=== PATIENT | female | born 1990 | race African-American/Black ===

== ENCOUNTER 2020-12-18 13:22 | Outpatient (CLI) | payer MEDICAID, SELFPAY ==
[2020-12-18 14:04] LABS: Basophils Percent Auto 0.4 % (0.2-1.2); Eosinophils Absolute Auto 0.1 K/mm3 (0-0.3); Eosinophils Percent Auto 1.4 % (0-4.4); Hematocrit 38.8 % (37.0-47.0); Hemoglobin 12.3 g/dL (12.0-15.0); Immature Granulocyte Absolute 0.02 K/mm3 (0.00-0.031); Immature Granulocyte Percent A 0.3 % (0-0.5); Lymphocytes Absolute Auto 2.47 K/mm3 (0.9-3.2); Lymphocytes Percent Auto 33.6 % (18.3-44.2); Mean Corpuscular HGB Conc 31.7 g/dl (32-36); Mean Corpuscular Hemoglobin 27.3 pg (26-34); Mean Corpuscular Volume 86.2 fl (80-100); Mean Platelet Volume 9.9 fl (7.4-10.4); Monocytes Absolute Auto 0.5 K/mm3 (0.1-0.6); Monocytes Percent Auto 6.3 % (2.6-8.5); Neutrophils Absolute Auto 4.3 K/mm3 (1.3-6.7); Platelet Count Result 237 k/mm3 (150-375); Red Cell Distribution Width 14.7 % (11.5-14.5); White Blood Count 7.4 K/mm3 (4.5-10.0)
[2020-12-18 14:59] LABS: HIV 1/2 Ab P24 Ag Result Negative (Negative)
[2020-12-18 15:33] LABS: Add Urine Microscopic? NO; Appearance Urine Clear (Clear); Bilirubin Urine Negative (Negative); Blood Urine Negative (Negative); Color Urine Yellow (Yellow); Glucose Urine UA Negative (Negative); Ketones Urine Negative (Negative); Leukocyte Esterase Ur Negative LEU/UL (NEGATIVE); Nitrate Urine Negative (Negative); Protein Urine Negative (Negative); Urobilinogen Urine Negative mg/dL (<2.0)
[2020-12-18 16:00] LABS: Vitamin D 25 Hydroxy 22.4 ng/mL
[2020-12-18 23:05] LABS: Hepatitis B Surface Antigen Negative (Negative)
[2020-12-18 23:06] LABS: Hepatitis C Virus Antibody Negative (Negative); Rubella IgG Antibody > 120.0 IU/ML
[2020-12-22 08:26] LABS: Rapid Plasma Reagin Non-Reactive (NonReactive)
[2020-12-22 15:47] LABS: Hematocrit 38.3 % (35.0-45.0); Hemoglobin 12.3 g/dL (11.7-15.5); MCH 27.9 pg (27.0-33.0); MCV 86.8 fL (80.0-100.0); RDW 15.8 % (11.0-15.0); Red Blood Cell Count 4.41 Mill/uL (3.80-5.10)
== END 2020-12-18 13:23 | disposition home or self-care (01) ==
PROVIDERS: Visit Provider Obstetrics & Gynecology
DX: Z34.90 Encounter for supervision of normal pregnancy, unspecified, unspecified trimester (principal); Z3A.00 Weeks of gestation of pregnancy not specified
CPT/HCPCS: 36415; 81003; 82306; 83021; 84443; 85025; 86592; 86703; 86762; 86787; 86803; 86850; 86900; 86901; 87086; 87088; 87340; G0432

== ENCOUNTER 2021-01-01 13:59 | Outpatient (CLI) | payer MEDICAID, SELFPAY ==
--- NOTE | ~2021-01-01 | US_ITS ---
EXAMINATION: US OB <= 14 weeks fetus DATE: 01/01/2021 14:52 INDICATION: Gestational dating. TECHNIQUE: Real-time transabdominal obstetric ultrasound. FINDINGS: No prior studies for comparison. There is a single living fetus in breech presentation. The placenta is posterior without placenta pr evia. cardiac activity and movement is noted with a heart rate of 166 beats per minute. T he amniotic fluid volume is subjectively normal. The following biometric data were obtained: BPD: 31mm corresponds to gestational age 15 weeks 5 days. Head circumference: 115mm corresponds to gestational age 15 weeks 4 days. Abdominal circumference: 90mm corresponds to gestational age 15 weeks 1 days. Femur length: 17mm corresponds to gestational age 15 weeks 1 days. Estimated weight: 118grams +/- 18grams.] IMPRESSION: 1. Single living intrauterine in breech presentation with an estimated gestational age of 15 weeks 3 days by current ultrasound. EDC by current ultrasound 06/22/2021. 2. Normal placenta. Reviewed, dictated and finalized at location A. IMPRESSION: 1. Single living intrauterine in breech presentation with an estimat ed gestational age of 15 weeks 3 days by current ultrasound. EDC by current ult rasound 06/22/2021. 2. Normal placenta.
== END 2021-01-01 14:00 | disposition home or self-care (01) ==
LOC: ANHIMG 14:01
PROVIDERS: Visit Provider Obstetrics & Gynecology
DX: Z34.92 Encounter for supervision of normal pregnancy, unspecified, second trimester (principal); Z3A.15 15 weeks gestation of pregnancy
CPT/HCPCS: 76801

== ENCOUNTER 2021-01-29 13:46 | Outpatient (CLI) | payer OTHER, SELFPAY ==
--- NOTE | ~2021-01-29 | US_ITS ---
EXAMINATION: US OB /maternal detail DATE: 01/29/2021 14:52 INDICATION: anatomic survey. TECHNIQUE: Real-time ultrasound of the pelvis was performed. COMPARISON: Ultrasound 01/01/2021 FINDINGS: There is a single living fetus in vertex presentation. The placenta is posterior, 5.4 cm from the ce rvix. heart rate is 150 beats per minute (bpm). The amniotic fluid index is 17.8 cm, which is n ormal. The following biometric data were obtained: Biparietal diameter (BPD): 4.3 cm; head circumference (HC): 16.2 cm; abdominal circumference (AC): 13 .5 cm; femur length (FL): 3.0 cm. These measurements are concordant. Estimated weight is 272 g +/- 41 g, which correlates with 26th percentile when 06/22/21 is used as estimated date of delivery. As single measurements, these parameters are each equal to the following estimated gestational ages: BPD: 19 weeks 0 days. HC: 19 weeks 0 days. AC: 19 weeks 0 days. FL: 19 weeks 2 days. estimated gestational age based solely on measurements from this exam is 19 weeks 1 days +/- 1 weeks 2 days. The cerebral ventricles, cerebellum, cisterna magna, nuchal fold, and visualized portions of the spin e are normal. The heart is normal. The diaphragm, stomach, kidneys, and bladder are normal. There are two umbilical arteries to yield a 3-vessel cord. The cord insertion is normal. IMPRESSION: 1. Single living fetus in vertex presentation. 2. Estimated weight is 272 g +/- 41 g, which correlates with 26th percentile when 06/22/21 is used as estimated date of delivery. This date was set by ultrasound on 01/11/2021. 3. Normal anatomic survey. Reviewed, dictated and finalized at location A. IMPRESSION: 1. Single living fetus in vertex presentation. 2. Estimated weight is 272 g +/- 41 g, which correlates with 26th percen tile when 12/28/21 is used as estimated date of delivery. This date was set by ultrasound on 01/11/2021. 3. Normal anatomic survey.
== END 2021-01-29 13:47 | disposition home or self-care (01) ==
LOC: ANHIMG 13:49
PROVIDERS: Visit Provider Obstetrics & Gynecology
DX: Z36.89 Encounter for other specified antenatal screening (principal)
CPT/HCPCS: 76805

== ENCOUNTER 2021-03-12 13:43 | Outpatient (CLI) | payer OTHER, SELFPAY ==
[2021-03-12 15:22] LABS: Basophils Percent Auto 0.3 % (0.2-1.2); Eosinophils Absolute Auto 0.1 K/mm3 (0-0.3); Eosinophils Percent Auto 1.1 % (0-4.4); Hematocrit 34.3 % (37.0-47.0); Hemoglobin 10.9 g/dL (12.0-15.0); Immature Granulocyte Absolute 0.04 K/mm3 (0.00-0.031); Immature Granulocyte Percent A 0.5 % (0-0.5); Mean Corpuscular HGB Conc 31.8 g/dl (32-36); Mean Corpuscular Hemoglobin 28.3 pg (26-34); Mean Corpuscular Volume 89.1 fl (80-100); Mean Platelet Volume 10.2 fl (7.4-10.4); Monocytes Absolute Auto 0.6 K/mm3 (0.1-0.6); Monocytes Percent Auto 6.6 % (2.6-8.5); Neutrophils Absolute Auto 5.2 K/mm3 (1.3-6.7); Neutrophils Percent Auto 59.5 % (45.5-73.1); Platelet Count Result 199 k/mm3 (150-375); Red Blood Count 3.85 M/mm3 (4.2-5.4); Red Cell Distribution Width 14.6 % (11.5-14.5); White Blood Count 8.8 K/mm3 (4.5-10.0)
[2021-03-12 15:34] LABS: Glucose 1 Hour PP 50gm Dose 111 mg/dL
[2021-03-12 16:14] LABS: HIV 1/2 Ab P24 Ag Result Negative (Negative)
== END 2021-03-12 13:44 | disposition home or self-care (01) ==
PROVIDERS: Visit Provider Obstetrics & Gynecology
DX: Z34.90 Encounter for supervision of normal pregnancy, unspecified, unspecified trimester (principal); Z3A.00 Weeks of gestation of pregnancy not specified
CPT/HCPCS: 36415; 82947; 85025; 86703; G0432

== ENCOUNTER 2021-05-31 13:11 | Outpatient (CLI) | payer OTHER, SELFPAY ==
--- NOTE | ~2021-05-31 | US_ITS ---
EXAMINATION: US OB follow up DATE: 05/31/2021 13:46 INDICATION: Assess growth and amniotic fluid index during third trimester of TECHNIQUE: Real-time ultrasound of the pelvis was performed. The interpreting radiologist was not pre sent for the study. COMPARISON: 01/01/2021 FINDINGS: There is a single living fetus in vertex presentation. The placenta is fundal. heart rate is 1 46 beats per minute (bpm). The amniotic fluid index is 14.0 cm, which is normal (5th%-95%: 7.7-24.9 cm at 36 weeks estimated gestational age). The following biometric data were obtained: BPD: 9.6 cm -> 39 weeks 1 days Head circumference: 34.5 cm -> 39 weeks 6 days Abdominal circumference: 32.8 cm -> 36 weeks 5 days Femur length: 7.5 cm -> 38 weeks 2 days These measurements are concordant. Head circumference to abdominal circumference ratio: 1.05 (normal range 0.88-1.06). Estimated weight: 3287 g (+/-) 493 g or 7 lbs 4 oz or (+/-) 1lb 1 oz. IMPRESSION: 1. Single living fetus in vertex presentation with heart rate of 146 bpm. 2. Normal amniotic fluid index of 14.0 cm. 3. Estimated weight is 78th percentile by Hadlock criteria when 06/22/2021 is used as the estim ated date of delivery (ODETTE). Please correlate with clinical information or earlier ultrasounds for mo st accurate ODETTE. Reviewed, dictated and finalized at location B. TION CLASSIFIER IMPRESSION: 1. Single living fetus in vertex presentation with heart rate of 146 bpm. 2. Normal amniotic fluid index of 14.0 cm. 3. Estimated weight is 78th percentile by Hadlock criteria when 1 is used as the estimated date of delivery (ODETTE). Please correlate with clinic al information or earlier ultrasounds for most accurate ODETTE.
== END 2021-05-31 13:12 | disposition home or self-care (01) ==
PROVIDERS: PCP Obstetrics & Gynecology; Visit Provider Obstetrics & Gynecology
DX: O26.841 Uterine size-date discrepancy, first trimester (principal); Z3A.00 Weeks of gestation of pregnancy not specified
CPT/HCPCS: 76816

== ENCOUNTER 2021-06-24 12:49 | Outpatient (RCR) | payer OTHER, SELFPAY ==
--- NOTE | ~2021-06-24 | US_ITS ---
EXAMINATION: US OB limited DATE: 06/24/2021 14:01 INDICATION: Assess amniotic fluid index in term . TECHNIQUE: Real-time ultrasound of the pelvis was performed. The interpreting radiologist was not pre sent for the study. COMPARISON: None. FINDINGS: There is a single living fetus in vertex presentation. The placenta is fundal. heart rate is 1 43 beats per minute (bpm). The amniotic fluid index is 8.0 cm, which is normal (5th%-95%: 7.1-21.4 cm at 40 weeks estimated gestational age). IMPRESSION: 1. Single living fetus in vertex presentation with heart rate of 143 bpm. 2. Normal amniotic fluid index of 8.0 cm. Reviewed, dictated and finalized at location A. [employer]
[2021-06-24 14:15] VITALS: BP 118/65; PULSE 82
== END 2021-09-22 23:59 | disposition home or self-care (01) ==
LOC: ANHOBOP 12:49
PROVIDERS: PCP Obstetrics & Gynecology; Visit Provider Obstetrics & Gynecology
DX: O48.0 Post-term pregnancy (principal); Z3A.40 40 weeks gestation of pregnancy
CPT/HCPCS: 59025; 76815

== ENCOUNTER 2021-06-28 15:06 | Inpatient (IN) | payer OTHER, SELFPAY ==
--- NOTE | 2021-06-02 11:27 | PC.NURSE ---
PATIENT IS A PREVIOUS C/S DUE TO PREVIA--PLANS TO --CONSENT SIGNED
[2021-06-28] VITALS (20 sets, daily range): BP systolic 87–122; BP diastolic 63–79; PULSE 58–80; RESP 18; TEMP 36.6–36.7
--- NOTE | 2021-06-28 17:30 | LDADM ---
This patient, Matt Ott, was admitted to Labor/Delivery/Recovery 102 on 06/28/21 at 15:06. Plans for labor, pain management and were discussed with patient. Patient/family oriented to hospital policies and general routines including ID bracelet, bed and alarms, visiting hours, pain management, procedures, bathroom and other care routines, personal items, smoking policy, room service/diet and guest tray routines, infant security routines, and visiting hours. Patient/Family are encouraged to report perceived risks to care and to ask questions if they do not understand what they are told or what they should do. See OBIX for further documentation.
[2021-06-28 17:36] LABS: Basophils Percent Auto 0.4 % (0.2-1.2); Eosinophils Absolute Auto 0.1 K/mm3 (0-0.3); Eosinophils Percent Auto 0.8 % (0-4.4); Hematocrit 36.7 % (37.0-47.0); Hemoglobin 11.6 g/dL (12.0-15.0); Immature Granulocyte Absolute 0.06 K/mm3 (0.00-0.031); Immature Granulocyte Percent A 0.7 % (0-0.5); Lymphocytes Absolute Auto 2.88 K/mm3 (0.9-3.2); Lymphocytes Percent Auto 33.8 % (18.3-44.2); Mean Corpuscular HGB Conc 31.6 g/dl (32-36); Mean Corpuscular Hemoglobin 27.4 pg (26-34); Mean Corpuscular Volume 86.6 fl (80-100); Mean Platelet Volume 11.7 fl (7.4-10.4); Monocytes Absolute Auto 0.9 K/mm3 (0.1-0.6); Neutrophils Absolute Auto 4.6 K/mm3 (1.3-6.7); Neutrophils Percent Auto 54.3 % (45.5-73.1); Platelet Count Result 220 k/mm3 (150-375); Red Blood Count 4.24 M/mm3 (4.2-5.4); Red Cell Distribution Width 15.2 % (11.5-14.5); White Blood Count 8.5 K/mm3 (4.5-10.0)
[2021-06-28] MEDS: OXYTOCIN 30 UNITS/NS 500 ML 30 UNITS/500 ML BAG IV CONT (17:47)
[2021-06-28] MEDS: LACTATED RINGERS 1,000 ML 125 ML IV CONT (17:48)
[2021-06-28 18:03] LABS: Alanine Aminotransferase 14 U/L (4-35); Albumin Level 4.3 g/dL (3.5-5.1); Alkaline Phosphatase 304 U/L (38-126); Anion Gap 8 mmol/L (8-16); Aspartate Amino Transferase 27 U/L (14-36); Bilirubin,Total 0.5 mg/dL (0.2-1.3); Blood Urea Nitrogen 6 mg/dL (7-17); Calcium 9.5 mg/dL (8.4-10.2); Carbon Dioxide 22 mmol/L (22-30); Chloride 105 mmol/L (98-107); Estimated Glomerular Filt Rate > 60; Glucose 75 mg/dL (65-110); Potassium 4.2 mmol/L (3.4-5.0); Sodium 135 mmol/L (137-145)
[2021-06-28 20:23] LABS: HIV 1/2 Ab P24 Ag Result Negative (Negative)
[2021-06-29] VITALS (178 sets, daily range): BP systolic 90–157; BP diastolic 50–119; PULSE 56–179; RESP 14–18; TEMP 36.4–38.4; O2SAT 86–100
[2021-06-29] MEDS: LACTATED RINGERS 1,000 ML 125 ML IV CONT ×2 (03:33→05:33)
--- NOTE | 2021-06-29 03:35 | WPDANESEPP ---
Anes - Eval Pre Procedure Procedure: Labor epidural Date/Time: 06/29/21 03:35 Surgeon: Jerry Preop Diagnosis: Abd pain wit contractions Pre Op Diagnosis: Induction of Labor Patient Data Age: 31 Gender: F Height: Weight: Last Vital Signs Temp 97.8 F 06/29/21 03:12 Pulse 67 06/29/21 03:30 Resp 18 06/28/21 18:59 BP 106/66 06/29/21 03:30 Allergies Allergy/AdvReac Type Severity Reaction Status Date / Time No Known Allergies Allergy Verified 06/28/21 12:30 Home Medications Medication Instructions Recorded Confirmed Type docosahexaenoic acid 200 mg capsule 200 mg PO DAILY 12/18/20 06/28/21 History pyridoxine (vitamin B6) 50 mg 50 mg PO DAILY 01/15/21 06/28/21 History tablet Laboratory Tests 06/28/21 06/28/21 06/28/21 17:25 17:25 17:25 WBC 8.5 K/mm3 K/mm3 (4.5-10.0) RBC 4.24 M/mm3 M/mm3 (4.2-5.4) Hgb 11.6 g/dL L g/dL (12.0-15.0) Hct 36.7 % L % (37.0-47.0) MCV 86.6 fl fl (80-100) MCH 27.4 pg pg (26-34) MCHC 31.6 g/dl L g/dl (32-36) RDW 15.2 % H % (11.5-14.5) Plt Count 220 k/mm3 k/mm3 (150-375) MPV 11.7 fl H fl (7.4-10.4) Immature Gran % (Auto) 0.7 % H % (0-0.5) Neut % (Auto) 54.3 % % (45.5-73.1) Lymph % (Auto) 33.8 % % (18.3-44.2) [place] % (Auto) 10.0 % H % (2.6-8.5) Eos % (Auto) 0.8 % % (0-4.4) Baso % (Auto) 0.4 % % (0.2-1.2) Lymph # (Auto) 2.88 K/mm3 K/mm3 (0.9-3.2) [place] # (Auto) 0.9 K/mm3 H K/mm3 (0.1-0.6) Eos # (Auto) 0.1 K/mm3 K/mm3 (0-0.3) Baso # (Auto) 0.0 K/mm3 K/mm3 (0.0-0.1) Abs Immat Gran (auto) 0.06 K/mm3 H K/mm3 (0.00-0.031) Absolute Neuts (auto) 4.6 K/mm3 K/mm3 (1.3-6.7) Absolute Nucleated RBC 0.0 K/mm3 K/mm3 (0.0-0.012) Nucleated RBC % 0.0 % % (0.0-0.2) Sodium 135 mmol/L L mmol/L (137-145) Potassium 4.2 mmol/L mmol/L (3.4-5.0) Chloride 105 mmol/L mmol/L (98-107) Carbon Dioxide 22 mmol/L mmol/L (22-30) Anion Gap 8 mmol/L mmol/L (8-16) BUN 6 mg/dL L mg/dL (7-17) Creatinine 0.50 mg/dL L mg/dL (0.7-1.0) Estim Creat Clear Calc Not Reportable Estimated GFR > 60 (59 - ) Glucose 75 mg/dL mg/dL (65-110) Uric Acid 3.0 mg/dL mg/dL (2.5-7.5) Calcium 9.5 mg/dL mg/dL (8.4-10.2) Total Bilirubin 0.5 mg/dL mg/dL (0.2-1.3) AST 27 U/L U/L (14-36) ALT 14 U/L U/L (4-35) Alkaline Phosphatase 304 U/L H U/L (38-126) Total Protein 8.0 g/dL g/dL (6.3-8.2) Albumin 4.3 g/dL g/dL (3.5-5.1) RPR Pending HIV 1&2 Ab/P24 Ag 4thGn Blood Type Antibody Screen 06/28/21 06/28/21 17:25 17:26 WBC RBC Hgb Hct MCV MCH MCHC RDW Plt Count MPV Immature Gran % (Auto) Neut % (Auto) Lymph % (Auto) [place] % (Auto) Eos % (Auto) Baso % (Auto) Lymph # (Auto) [place] # (Auto) Eos # (Auto) Baso # (Auto) Abs Immat Gran (auto) Absolute Neuts (auto) Absolute Nucleated RBC Nucleated RBC % Sodium Potassium Chloride Carbon Dioxide Anion Gap BUN Creatinine Estim Creat Clear Calc Estimated GFR Glucose Uric Acid Calcium Total Bilirubin AST ALT Alkaline Phosphatase Total Protein Albumin RPR HIV 1&2 Ab/P24 Ag 4thGn Negative (Negative) Blood Type O Positive Antibody Screen
--- NOTE | 2021-06-29 07:57 | PM.IMHP ---
H&P: HPI History of Present Illness Date/Time: 06/29/21 07:57 at 40+5 with h/o prior C section due to placenta previa. She came to office yesterday and had mildly elevated BP so she was advised to be induced. She is comfortable with epidural and had no complaints this morning Chief Complaint: induction of labor, previous Review of Systems Review of Systems: All systems reviewed & are unremarkable except as noted in HPI and below PMFSH Past Medical History Medical History No active medical problems Obesity Surgical History Surgical History History of x1 Previous section Family History Family History Father Liver cancer Diabetes mellitus Hypertension Social History Social History Smoking status: Never smoker Second hand tobacco smoke exposure: No Alcohol intake: never Substance use: never Spiritual care concerns: No Meds Home Medications and Allergies Home Medications Medication Instructions Recorded Confirmed Type docosahexaenoic acid 200 mg capsule 200 mg PO DAILY 12/18/20 06/28/21 History pyridoxine (vitamin B6) 50 mg 50 mg PO DAILY 01/15/21 06/28/21 History tablet Allergies Allergy/AdvReac Type Severity Reaction Status Date / Time No Known Allergies Allergy Verified 06/28/21 12:30 Vital Signs Vital Signs - 24 hr 06/28/21 15:51 06/28/21 16:00 06/28/21 16:16 Temperature Pulse Rate 76 76 68 Respiratory Rate Blood Pressure 115/67 109/63 110/67 Pulse Oximetry 06/28/21 16:30 06/28/21 16:45 06/28/21 17:00 Temperature Pulse Rate 80 71 68 Respiratory Rate Blood Pressure 109/69 113/63 114/66 Pulse Oximetry 06/28/21 18:53 06/28/21 18:59 06/28/21 19:00 Temperature 36.7 C Pulse Rate 66 79 Respiratory Rate 18 Blood Pressure 113/72 107/79 Pulse Oximetry 06/28/21 19:30 06/28/21 20:00 06/28/21 20:31 Temperature Pulse Rate 65 58 L 72 Respiratory Rate Blood Pressure 106/66 114/71 87/71 L Pulse Oximetry 06/28/21 20:32 06/28/21 21:00 06/28/21 21:30 Temperature 36.6 C Pulse Rate 59 L 72 Respiratory Rate Blood Pressure 109/71 120/76 Pulse Oximetry 06/28/21 21:31 06/28/21 22:00 06/28/21 22:31 Temperature Pulse Rate 69 66 67 Respiratory Rate Blood Pressure 105/72 117/79 122/70 Pulse Oximetry 06/28/21 23:00 06/28/21 23:30 06/29/21 00:00 Temperature 36.4 C L Pulse Rate 63 68 Respiratory Rate Blood Pressure 117/72 117/77 Pulse Oximetry 06/29/21 00:01 06/29/21 01:00 06/29/21 01:30 Temperature Pulse Rate 65 65 57 L Respiratory Rate Blood Pressure 123/73 111/91 H 113/77 Pulse Oximetry 06/29/21 02:00 06/29/21 02:30 06/29/21 03:00 Temperature Pulse Rate 56 L 60 60 Respiratory Rate Blood Pressure 116/77 114/76 119/78 Pulse Oximetry 06/29/21 03:12 06/29/21 03:30 06/29/21 03:40 Temperature 36.6 C Pulse Rate 67 Respiratory Rate Blood Pressure 106/66 Pulse Oximetry 100 06/29/21 03:45 06/29/21 03:47 06/29/21 03:50 Temperature Pulse Rate 75 Respiratory Rate Blood Pressure 120/98 H Pulse Oximetry 86 L 100 06/29/21 03:54 06/29/21 03:55 06/29/21 03:56 Temperature Pulse Rate 91 63 Respiratory Rate Blood Pressure 128/93 H 117/64 Pulse Oximetry 100 06/29/21 03:57 06/29/21 03:59 06/29/21 04:00 Temperature Pulse Rate 76 63 67 Respiratory Rate Blood Pressure 133/80 109/62 116/73 Pulse Oximetry 100 06/29/21 04:05 06/29/21 04:10 06/29/21 04:11 Temperature Pulse Rate 85 58 L Respiratory Rate Blood Pressure 129/90 118/70 Pulse Oximetry 100 100 06/29/21 04:15 06/29/21 04:18 06/29/21 04:20 Temperature 36.8 C Pulse R
--- NOTE | 2021-06-29 13:24 | PM.OBPRVD ---
OB - Delivery Note Procedure Delivery date: 06/29/21 Procedure: events: Previous , Induced HTN and Labor Induction Induction method: per pitocin protocol Delivery augmentation: rupture of membranes Delivery monitor: external FHT and internal uterine Route of delivery: Laceration Description: Perineal - 2nd Degree Delivery repair: vicryl (2-0) Specimen: No Quantitative Blood Loss (ml): 112 Anesthesia type: Epidural Disposition: floor [place] Baby Date of : 06/29/21 Time of : 13:05 Weeks of gestation at delivery: 40 gender: Female Weight (pounds): 8 Weight (ounces): 6 presentation: vertex position: Left Occiput Anterior Placenta delivery description: Spontaneous cord vessel description: 3 Vessels, Nuchal Cord, Loose, Reduced and Clamped/Cut score one minute: 9 score five minutes: 9
[2021-06-29] MEDS: OXYTOCIN 30 UNITS/NS 500 ML 30 UNITS/500 ML BAG 125 UNITS IV CONT (13:41)
[2021-06-29 14:57] LABS: Rapid Plasma Reagin Non-Reactive (NonReactive)
[2021-06-29] MEDS: IBUPROFEN 600 MG TABLET PO ×2 (15:28→23:49)
--- NOTE | 2021-06-29 18:15 | PC.NURSE ---
1554 Patient transferred to post room # 292 via ( wheelchair ). Support person present. Oriented to unit, room, information board, rooming in, admission packet and security measures. Patient verbalizes understanding.
[2021-06-29] MEDS: HYDROcodone/acetaminophen (*CRX) 5-325 MG TABLET 1 TAB PO (19:58)
[2021-06-30 04:00] VITALS: BP 108/64; PULSE 70; RESP 16; TEMP 36.6
[2021-06-30] MEDS: HYDROcodone/acetaminophen (*CRX) 5-325 MG TABLET 1 TAB PO (04:24)
[2021-06-30 06:42] LABS: Hematocrit 33.2 % (37.0-47.0); Hemoglobin 10.6 g/dL (12.0-15.0)
[2021-06-30 07:25] VITALS: BMI 30.4
[2021-06-30 07:55] VITALS: BP 111/69; PULSE 68; RESP 16; TEMP 36.4; O2SAT 100
--- NOTE | 2021-06-30 08:11 | PM.OBPNVD ---
OB - PN: Subj Subjective Date/time seen: 06/30/21 08:11 Patient comments: no complaints, pain well controlled and other (Lochia similar to menses) [place] baby status: doing well OB - PN: Obj Data Labs CBC & Chem 7: 06/30/21 04:23 06/28/21 17:25 Labs: Laboratory Results - last 24 hr 06/28/21 06/30/21 17:25 04:23 Hgb 10.6 L Hct 33.2 L RPR Non-reactive OB - PN A/P Plan day: 1 (s/p vaginal delivery, doing well) Plan: routine care and discharge home (Follow up in 4-6 weeks) Time Spent With Patient Time: Total time spent is greater than 50% in coordination of care (as documented) at patient's floor/unit and/or counseling patient: Time with patient: less than 15 minutes Exam Const: General: no acute distress GI: Inspection: other (Fundus firm and nontender at umbilicus) GI Palp: Yes Soft to palpation and No Tenderness to palpation present (GI) Extrem: General: no edema
--- NOTE | 2021-06-30 08:12 | P.DS_ITS ---
DS: Admitting Diagnosis Discharge Date 06/30/2021 Admitting Diagnosis Induction of labor, gestational HTN, prior DS: Discharge Diagnosis Discharge Diagnosis (1) , delivered, current hospitalization: Code(s): O34.219 - Maternal care for unspecified type scar from previous delivery Status: Acute (2) Gestational hypertension: Code(s): O13.9 - Gestational [-induced] hypertension without significant proteinuria, unspecified trimester Status: Acute OB - DS: Summary OB Procedures : PIH Mgmt OB Procedures Intrapartum: OB Procedures: : None Peripartum Data Delivery Method: Natural Vaginal Laceration Description: Perineal - 2nd Degree complications: none Status at Discharge Functional status at discharge: independent ambulation Overall status at discharge: patient is progressing back to baseline Time Spent with Patient Time attestation: Total time spent providing and/or coordinating discharge services: Time spent: Less than 30 minutes DS: Data Data Completed and Pending Labs on day of discharge: Labs from last 24 hours 06/30/21 06/28/21 04:23 17:25 Hgb 10.6 L Hct 33.2 L RPR Non-reactive Discharge Plan Discharge Attending physician on discharge: Nicole Edwards Discharging Clinician: Nicole Edwards Patient Disposition: Home, Self-Care Activity: may shower and pelvic rest Diet: as tolerated Patient Instructions: Antibiotic Form Stand Alone Forms: General Discharge Information Follow-up/Referrals: Nicole Edwards MD [Physician] - 4 Weeks Discharge Medications: New hydrocodone-acetaminophen 5-325 mg Tablet 1 tablet PO Q4H PRN (Reason: Moderate Pain (4-6)) Qty: 20 RF: 0 ibuprofen 600 mg Tablet 600 mg PO Q6H PRN (Reason: Cramping) Qty: 60 RF: 0 Continued DHA 200 mg capsule 200 mg PO DAILY RF: 0 Discontinued pyridoxine (vitamin B6) 50 mg tablet 50 mg PO DAILY RF: 0 Date of admission: 06/28/21 15:06 Primary Care Provider: PHYSICIAN,[employer] Admitting Provider: Nicole Edwards Attending physician on admission: Nicole Edwards Condition: Stable
[2021-06-30] MEDS: MULTIVIT/MIN/PREN/FOL AC/IRON TABLET 1 TAB PO (09:05)
[2021-06-30] MEDS: IBUPROFEN 600 MG TABLET PO (09:05)
[2021-06-30] MEDS: DOCUSATE SODIUM 100 MG CAPSULE PO (09:05)
--- NOTE | 2021-06-30 09:44 | PC.NURSE ---
0900 - Consulted with patient, reviewed infant feeding cues, frequencies, duration of feedings, feeding elimination flow sheet, and signs of adequate intake. Reviewed and demonstrated techniques to wake for feeding after discussing early feeding cues of REM and infant hands either tight or relaxed. Mom demonstrated assisting infant to breast. Reviewed positioning/alignment, holding breast and asymmetrical latch on. Infant was able to latch correctly using the [place] position. nursed eagerly, with steady draws, suck/swallow ratios of 2:1 and 3:1, with rounded cheek and rocking jaw motion. Reinforced early feeding cue signs and assessed parental knowledge and response to the cues. Reviewed breast massage (maternal/), position changes and infant signs of adequate intake and output. was able to maintain latch without discomfort to mother. Nipple care reviewed. Instructed mother to call out for RN assistance if she is unable to latch for feeding or she has discomfort with nursing. Instructed feeding to be initiated with feeding cues, every 2-3 hours from the start of the last feeding and 10-12 times in a 24 hour time period. Mother voiced understanding of information shared.
--- NOTE | 2021-06-30 10:37 | WPDANLDPN2 ---
Anes-Prog Note L&D Date/Time: 06/30/21 10:37 Comfortable throughout: labor and delivery Neuraxial method: epidural Epidural/Spinal procedure site: clean & non-tender Neuro status: Neuro function grossly intact. Cardiovascular status: normal Respiratory status: normal Airway patency: baseline Mental status: baseline Post-Op hydration status: normal Vital Signs: Last Vital Signs Temp 36.4 C 06/30/21 07:55 Pulse 68 06/30/21 07:55 Resp 16 06/30/21 07:55 BP 111/69 06/30/21 07:55 Pulse Ox 100 06/30/21 07:55 Pain score (VAS): 2 Post-procedural complaints: none Patient feedback: Patient satisfied with anesthetic care.
[2021-06-30 12:30] VITALS: BP 114/72; PULSE 74; RESP 16; RESP 18; TEMP 36.8; O2SAT 100
[2021-06-30] MEDS: BENZOCAINE 20% AER SPR (*SP) 56 GM CAN 1 SPRAY TOPICAL (13:18)
[2021-06-30] MEDS: WITCH HAZEL 40 PADS 1 PAD TOPICAL (13:18)
[2021-06-30] MEDS: LANOLIN (LANSINOH) 7.5 GM CREAM 1 APPLIC TOPICAL (13:18)
--- NOTE | 2021-06-30 14:07 | PC.NURSE ---
Self care and infant care discharge instructions given including follow up visit date and time. Pt. verbalized understanding. No questions or concerns voiced. Very pleasant and cooperative.
[2021-07-01 13:23] VITALS: BP 128/66; PULSE 83; RESP 20; TEMP 36.7; O2SAT 100
== END 2021-06-30 17:20 | disposition home or self-care (01) | DRG 560 ==
LOC: ANHLDR 15:19 → ANHOB2 06-29 16:53
PROVIDERS: Admitting Provider Obstetrics & Gynecology; Visit Provider Obstetrics & Gynecology
DX: O34.219 Maternal care for unspecified type scar from previous cesarean delivery (principal); O13.4 Gestational [pregnancy-induced] hypertension without significant proteinuria, complicating childbirth; O70.1 Second degree perineal laceration during delivery; O69.81X0 Labor and delivery complicated by cord around neck, without compression, not applicable or unspecified; O76 Abnormality in fetal heart rate and rhythm complicating labor and delivery; Z3A.40 40 weeks gestation of pregnancy; Z37.0 Single live birth
CPT/HCPCS: 36415; 80053; 84550; 85014; 85018; 85025; 86592; 86703; 86850; 86900; 86901; A9270; G0432; J2590; J2795; J7120